=== PATIENT | female | born 1955 | race Caucasian/White ===

== ENCOUNTER 2016-10-23 11:00 | Emergency (ER) | payer OTHER ==
--- NOTE | 2016-10-28 16:04 | ER ---
ADMIT: 10/23/2016 RM/LOC: ER [facility] MR#: [id number] [id number] [place] RUIZ [address] [place] [address] Emergency Room Report SEX: F AGE: 61 : 1955 DATE: 10/23/2016 HISTORY OF PRESENT ILLNESS: The patient is a 61-year-old female, presents to the emergency room with high blood pressure. She says she contacted Dr. Steiner's office today and was told to come to the emergency room because her blood pressure at the office was 170/100. She went to Urgent Care, Thursday night, and had a blood pressure of 179 over a 3-digit number she cannot remember. REVIEW OF SYSTEMS: Urinary tract infection and anxiety with depression. is at bedside and he corroborates or verifies the information that she is giving us. PAST MEDICAL HISTORY: She has past medical history of DVTs, panic attacks, Meniere syndrome, and recently was diagnosed with UTI on Thursday and given Bactrim while. She now has had 3 days worth of antibiotics. She still concerned because her blood pressure is extremely high she says. ALLERGIES: SHE IS ALLERGIC TO CORTISONE. MEDICATIONS: Takes aspirin on a daily basis. SOCIAL HISTORY: She denies drinking drugs or alcohol. PHYSICAL EXAMINATION: VITAL SIGNS: Blood pressure is 161/102, heart rate is 79, respirations 18, temp is 98.3. GENERAL: She looks extremely anxious. Her eyes are wide open. Very hypersensitive to every remark about her blood pressure. In other words, she seems stressed out. HEENT: Eyes are normal inspection otherwise. NECK: Supple. No carotid bruits. No JVDs. RESPIRATIONS: No distress. CVS: Regular in rate and rhythm. No gallops. No friction or rubs. ABDOMEN: Nontender. SKIN: Good color and turgor. EXTREMITIES: No edema. She does have chronic right knee pain with trace edema. NEUROLOGIC: Oriented x4. Mood and affect are appropriate, although anxious. She states that she stopped taking her hydrochlorothiazide between 2-5 years ago. She has been checking her blood pressure and seems to be more anxious with an increasing blood pressure, recently. is sitting in the room, verifies anxiety issues, and her lack of exercise also complicates her issues with blood pressure increased. She is very depressed because she cannot exercise due to injury in her right knee and the fact that she is going to need a replacement. I went ahead and I monitored her blood pressure for a ADMIT: 10/23/2016 RM/LOC: [facility] MR#: [id number] [address] [place] [id number] DEVANG SIERRA [address] [place] [address] Emergency Room Report SEX: F AGE: 61 : 1955 while and noticed that it was coming nicely down but anything arises her anxiety again. I did send the nurse in with the Xanax 0.25 mg to help the patient. Her labs workup pretty normal. CBC normal. Chemistry normal except for BNP at 350. UA totally normal. Her EKG sinus rhythm at 77 beats per minute. Cardiac enzymes normal. CLINICAL IMPRESSION: Elevated blood pressure with history of hypertension but noncommittal to medication use, anxiety history. Given a prescription for Lasix, lisinopril, and Xanax. I contacted Dr. Steiner's office and she has an appointment in the morning at 8:[address] Steiner for followup. Avoid taking her blood pressure until she see Dr. Steiner again. I did give her prescription and she will be ready to be discharged. IVORY Reed / Abelardo Rios MD / modl JOB #: [id number] CC: Abelardo Rios MD, Attending Physician Emilia Steiner MD, Family Physician
== END 2016-10-23 14:45 | disposition home or self-care (01) ==
LOC: ER 11:00
DX: I10 Essential (primary) hypertension (principal); Z86.718 Personal history of other venous thrombosis and embolism; Z79.82 Long term (current) use of aspirin; Z88.8 Allergy status to other drugs, medicaments and biological substances